=== PATIENT | female | born 1935 | race Caucasian/White ===

== ENCOUNTER 2017-08-01 18:01 | Emergency (ER) | payer MEDICARE, BC ==
[2017-08-01] MEDS ORDERED: HYDROmorphone 2 MG/ML SDV ONE (18:05)
[2017-08-01] MEDS ORDERED: HYDROmorphone 1 MG/ML Syringe IVPUSH ONE ×2 (18:11→19:03)
[2017-08-01] MEDS ORDERED: Ondansetron 4 MG/2 ML SDV IVPUSH ONE (18:11)
--- NOTE | 2017-08-01 18:23 | EDM.PDOC ---
ED HPI GENERAL MEDICAL PROBLEM - General Chief Complaint: Lower Extremity Injury/Pain Stated Complaint: RIGHT HIP??? FALL Time Seen by Provider: 08/01/17 18:05 Source of Information: Reports: Patient, EMS, Alf Records History Limitations: Reports: Other (dementia) - History of Present Illness INITIAL COMMENTS - FREE TEXT/NARRATIVE: 81 YO WF presents to ER by EMS after fall at [place]. Pt was transferring to a chair when she lost her balance and fell. Pt complaining of severe right hip pain after fall. 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 Pt denies any other injury tonight. No evidence of head injury or neck injury. Onset: Today Onset Date: 08/01/17 Onset Time: 17:00 Location: Reports: Lower Extremity, Right Quality: Reports: Ache Severity: Severe Improves with: Reports: Rest Worsens with: Reports: Movement Associated Symptoms: Reports: No Other Symptoms - Related Data Allergies Allergy/AdvReac Type Severity Reaction Status Date / Time No Known Drug Allergies Allergy NKDA Verified 09/19/16 08:38 Home Meds: Home Meds B12/Levomefolate Calcium/B-6 [Foltx Tablet] 1 each PO DAILY #90 tablet 10/06/16 [Rx] Calcium Carbonate/Vitamin D2 [Calcium Oys Shell 250 MG] 1 each PO BID #90 tablet 10/06/16 [Rx] Carbidopa/Levodopa [Carbidopa-Levodopa 25-100 Tab] 2 each PO ASDIRECTED #180 tablet 10/06/16 [Rx] Gabapentin [Neurontin] 300 mg PO 0800,1400,2000 #180 cap 10/06/16 [Rx] Lactobacillus Acidophilus [Probiotic] 1 each PO DAILY #90 capsule 10/06/16 [Rx] [place]-3S/DHA/Epa/Fish Oil [[place]-3 Fish Oil 1,000 mg Sfgl] 1,000 mg PO BID #180 capsule 10/06/16 [Rx] Polyethylene Glycol 3350 [MiraLAX] 17 gm PO BEDTIME #30 packet 10/06/16 [Rx] Sennosides/Docusate Sodium [Senna S Tablet] 1 each PO DAILY PRN #60 tablet 10/06 [Rx] Past Medical History HEENT History: Reports: Cataract, Impaired Vision Gastrointestinal History: Reports: Other (See Below) Other Gastrointestinal History: constipation Musculoskeletal History: Reports: Osteoporosis Neurological History: Reports: Parkinson's Psychiatric History: Reports: Anxiety - Infectious Disease History Infectious Disease History: Reports: Chicken Pox, Measles, Pertussis (Whooping Cough), Shingles - Past Surgical History HEENT Surgical History: Reports: Cataract Surgery Social & Family History - Family History Family Medical History: Noncontributory - Tobacco Use Smoking Status *Q: Never Smoker Second Hand Smoke Exposure: No - Caffeine Use Caffeine Use: Reports: None - Recreational Drug Use Recreational Drug Use: No Review of Systems - Review of Systems Review Of Systems: See Below Constitutional: Reports: No Symptoms Eyes: Reports: No Symptoms Ears: Reports: No Symptoms Nose: Reports: No Symptoms Mouth/Throat: Reports: No Symptoms Respiratory: Reports: No Symptoms Cardiovascular: Reports: No Symptoms GI/Abdominal: Reports: No Symptoms Genitourinary: Reports: No Symptoms Musculoskeletal: Reports: Leg Pain (right hip/femur) Skin: Reports: No Symptoms Neurological: Reports: No Symptoms Psychiatric: Reports: No Symptoms ED EXAM, GENERAL - Physical Exam Exam: See Below Exam Limited By: Altered Mental Status General Appearance: Alert, WD/WN, Moderate Distress Throat/Mouth: Normal Inspection, Normal Lips, Normal Teeth, Normal Gums, Normal Oropharynx, Normal Voice, No Airway Compromise Head: Atraumatic, Normocephalic Neck: Normal Inspection, Supple, Non-Tender, Full Range of Motion Respiratory/Chest: No Respiratory Distress, Lungs Clear, Normal Breath Sounds, No Accessory Muscle Use, Chest Non-Tender Cardiovascular: Normal Peripheral Pulses, Regular Rate, Rhythm, No Edema, No Gallop, No JVD, No Murmur, No Rub GI/Abdominal: Normal Bowel Sounds, Soft, Non-Tender, No Organomegaly, No Distention, No Abnormal Bruit, No Mass Back Exam: Normal Inspection, Full Range of Motion, NT Extremities: Leg Pain (right distal femur with deformity) Course - Orders/Labs/Meds Orders: Active Orders 24 hr Category Date Time Status EKG Documentation Completion [RC] ASDIRECTED Care 08/01/17 18:12 Active Femur Min 2V Rt [CR] Stat Exams 08/01/17 18:11 Stop Req EKG 12 Lead [EK] Routine Ther 08/01/17 18:11 Stop Req Meds: Medications Discontinued Medications Generic Name Dose Route Start Last Admin Trade Name Freq PRN Reason Stop Dose Admin Hydromorphone HCl Confirm 08/01/17 18:05 Dilaudid Administered 08/01/17 18:06 Dose 2 mg .ROUTE .STK-MED ONE Hydromorphone HCl 1 mg 08/01/17 18:11 Dilaudid IVPUSH 08/01/17 18:12 ONETIME ONE Ondansetron HCl 4 mg 08/01/17 18:11 Zofran IVPUSH 08/01/17 18:12 ONETIME ONE - Radiology Interpretation Free Text/Narrative:: right hip/femur- spiral fracture of proximal femur extending to distal aspect of femur Departure - Departure Time of Disposition: 19:06 Disposition: DC/Tfer to [facility] Condition: Serious Clinical Impression: Femur fracture, right Qualifiers: Femur location: distal Fracture type: closed - Discharge Information Referrals: PCP,Unknown [Primary Care Provider] - Forms: ED Department Discharge, Interfacility Transfer EMTALA - My Orders Last 24 Hours: My Active Orders 08/01/17 18:11 Femur Min 2V Rt [CR] Stat EKG 12 Lead [EK] Routine 08/01/17 18:12 EKG Documentation Completion [RC] ASDIRECTED - Assessment/Plan Last 24 Hours: My Active Orders 08/01/17 18:11 Femur Min 2V Rt [CR] Stat EKG 12 Lead [EK] Routine 08/01/17 18:12 EKG Documentation Completion [RC] ASDIRECTED Assessment:: 1. right femur fracture- spiral fracture extending to distal femur Plan: 1. transfer to [facility] for surgical evaluation 2. Discussed case with Dr Underwood- Ortho 3. dilaudid for pain
[2017-08-01 20:09] VITALS: BP 135/73
== END 2017-08-01 19:50 ==
LOC: KA.ED 18:01
DX: S72.114A Nondisplaced fracture of greater trochanter of right femur, initial encounter for closed fracture (principal); S72.121A Displaced fracture of lesser trochanter of right femur, initial encounter for closed fracture; M97.01XA Periprosthetic fracture around internal prosthetic right hip joint, initial encounter; W04.XXXA Fall while being carried or supported by other persons, initial encounter; Z79.899 Other long term (current) drug therapy
CPT/HCPCS: 73552; 96374; 96375; 99285; J1170; J2405; 99284